=== PATIENT | male | born 1970 | race Caucasian/White ===

== ENCOUNTER 2019-12-22 01:14 | Inpatient (IN) | payer MEDICAID ==
[~2019-12-22] VITALS: Ht 185.4 cm; Wt 87.5 kg
[~2019-12-22 01:14] MED LIST: GABA-1181 PO; HYDR-4031 PO; MIRT45TA PO
[2019-12-22] MEDS ORDERED: LORazepam 1 MG TABLET PO PRN (02:30)
[2019-12-22] MEDS ORDERED: HALOPERIDOL 5 MG TABLET PO PRN (02:30)
[2019-12-22] MEDS ORDERED: ZOLPIDEM TARTRATE 10 MG TABLET PO PRN (02:30)
[2019-12-22 04:29] VITALS: BP 138/94
[2019-12-22 10:01] VITALS: BP 120/80
[2019-12-22] MEDS ORDERED: MAGNESIUM HYDROXIDE SUSPENSION 30 ML UDCUP PO PRN (11:30)
[2019-12-22] MEDS ORDERED: ACETAMINOPHEN 325 MG TABLET PO PRN (11:30)
[2019-12-22] MEDS ORDERED: ALBUTEROL SULFATE HFA 90 MCG/PUFF 8 GM INHALER IH PRN (11:30)
[2019-12-22] MEDS ORDERED: LOPERAMIDE HCL 2 MG CAPSULE PO PRN (11:30)
[2019-12-22] MEDS ORDERED: ONDANSETRON HCL 4 MG TABLET PO PRN (11:30)
[2019-12-22] MEDS ORDERED: CloNIDine HCL 0.1 MG TABLET PO PRN (11:30)
[2019-12-22] MEDS ORDERED: MAG HYDROX/AL HYDROX/SIMETH ES 30 ML SUSPENSION UDCUP PO PRN (11:30)
[2019-12-22] MEDS ORDERED: PETROLATUM,WHITE 28 GM JELLY TP PRN (11:30)
[2019-12-22] MEDS ORDERED: GuaiFENesin/D-METHORPHAN [SUGAR-FREE] 200-20MG/10 ML SYRUP UDCUP PO PRN (11:30)
[2019-12-22] MEDS ORDERED: DOCUSATE SODIUM 100 MG CAPSULE PO PRN (11:30)
[2019-12-22] MEDS ORDERED: NICOTINE 14 MG/24 HOUR PATCH TD PRN (11:30)
[2019-12-22] MEDS ORDERED: MIRT30 PO (13:47)
[2019-12-22] MEDS ORDERED: HYDR50CA9 PO (13:47)
[2019-12-22] MEDS: BusPIRone HCL 15 MG TABLET PO SCH (16:18)
[2019-12-22 16:23] VITALS: BP 129/87
[2019-12-22] MEDS: IBUPROFEN 400 MG TABLET PO PRN (16:23)
[2019-12-22] MEDS: RisperiDONE 1 MG TABLET PO SCH (20:25)
[2019-12-22] MEDS: MIRTAZAPINE 30 MG TABLET PO SCH (20:25)
[2019-12-23 01:41] VITALS: BP 132/79
[2019-12-23 08:28] LABS: BASOPHILS % (AUTO) 0.6 % (0.0-2.0); EOSINOPHILS % (AUTO) 2.2 % (1.0-6.0); HEMATOCRIT 48.6 % (41-53); HEMOGLOBIN 16.1 g/dL (13.5-17.5); LYMPHOCYTES # (AUTO) 1.8 K/uL (1.0-4.8); MEAN CORPUSCULAR HEMOGLOBIN 30.1 pg (26.0-34.0); MEAN CORPUSCULAR HGB CONC 33.1 G/dL (31.0-37.0); MEAN CORPUSCULAR VOLUME 91 fL (80-100); MONOCYTES # (AUTO) 0.4 K/uL (0.1-1.0); MONOCYTES % (AUTO) 8.1 % (2.0-9.0); NEUTROPHILS # (AUTO) 2.7 K/uL (1.8-7.7); NEUTROPHILS % (AUTO) 54.1 % (40.0-70.0); PLATELET COUNT (AUTO) 226 K/uL (150-450); RED BLOOD CELL COUNT(AUTO) 5.34 MIL/uL (4.50-5.90); RED CELL DISTRIBUTION WIDTH 15.8 % (11.5-14.5)
[2019-12-23 08:55] LABS: ALANINE AMINOTRANSFERASE 40 U/L (12-78); ALBUMIN 3.5 g/dL (3.4-5.0); ALKALINE PHOSPHATASE 80 U/L (46-116); ANION GAP 10 mmol/L (8-16); ASPARTATE AMINOTRANSFERASE 28 U/L (15-37); BILIRUBIN,TOTAL 0.9 mg/dL (0.1-1.0); CALCIUM, TOTAL 9.2 mg/dL (8.8-10.5); CARBON DIOXIDE 27 mmol/L (22-29); CHLORIDE 104 mmol/L (98-107); CHOL/HDL RATIO 2.7 (4.2-7.3); CHOLESTEROL 184 mg/dL (131-200); CREATININE 0.88 mg/dL (0.60-1.30); FREE T4 (FREE THYROXINE) 0.95 ng/dL (0.76-1.46); GLOMERULAR FILTR. RATE CALC > 60 mL/min (>60); GLUCOSE,RANDOM 93 mg/dL (70-110); HDL CHOLESTEROL 68 mg/dL (40-60); LDL CHOL (CALC.) 96 mg/dL (0-130); POTASSIUM 3.9 mmol/L (3.5-5.1); SODIUM SERUM 141 mmol/L (136-145); THYROID STIMULATING HORMONE 1.14 uIU/mL (0.36-3.74); TOTAL PROTEIN, SERUM 7.1 g/dL (6.4-8.2); TRIGLYCERIDES 99 mg/dL (15-150); UREA NITROGEN, BLOOD 17 mg/dL (7-18)
[2019-12-23] MEDS: BusPIRone HCL 15 MG TABLET PO SCH ×2 (09:01→16:25)
[2019-12-23 09:43] VITALS: BP 131/68
[2019-12-23 16:00] VITALS: BP 133/75
[2019-12-23] MEDS: MIRTAZAPINE 30 MG TABLET PO SCH (20:02)
[2019-12-23] MEDS: RisperiDONE 1 MG TABLET PO SCH (20:02)
[2019-12-23] MEDS: IBUPROFEN 400 MG TABLET PO PRN (20:03)
[2019-12-24 05:30] VITALS: BP 133/72
[2019-12-24] MEDS: BusPIRone HCL 15 MG TABLET PO SCH ×2 (08:41→16:40)
[2019-12-24] MEDS: IBUPROFEN 400 MG TABLET PO PRN ×2 (10:02→16:40)
[2019-12-24 10:53] VITALS: BP 104/60
[2019-12-24 19:18] VITALS: BP 126/89
[2019-12-24] MEDS: MIRTAZAPINE 30 MG TABLET PO SCH (20:16)
[2019-12-24] MEDS: RisperiDONE 1 MG TABLET PO SCH (20:16)
[2019-12-25 05:18] VITALS: BP 122/80
[2019-12-25] MEDS: BusPIRone HCL 15 MG TABLET PO SCH ×2 (09:26→17:50)
[2019-12-25 17:47] VITALS: BP 133/79
[2019-12-25] MEDS: IBUPROFEN 400 MG TABLET PO PRN (20:53)
[2019-12-25] MEDS: MIRTAZAPINE 30 MG TABLET PO SCH (20:53)
[2019-12-25] MEDS: RisperiDONE 1 MG TABLET PO SCH (20:53)
[2019-12-26 00:37] VITALS: BP 132/80
[2019-12-26] MEDS: BusPIRone HCL 15 MG TABLET PO SCH ×2 (09:25→16:57)
[2019-12-26 10:16] VITALS: BP 116/63
[2019-12-26 13:12] VITALS: BP 120/65
[2019-12-26] MEDS: IBUPROFEN 400 MG TABLET PO PRN (13:12)
[2019-12-26 16:16] VITALS: BP 110/76
[2019-12-26] MEDS: MIRTAZAPINE 30 MG TABLET PO SCH (20:22)
[2019-12-26] MEDS: RisperiDONE 1 MG TABLET PO SCH (20:23)
[2019-12-27 00:24] VITALS: BP 127/89
[2019-12-27 08:18] VITALS: BP 121/75
[2019-12-27] MEDS: BusPIRone HCL 15 MG TABLET PO SCH ×2 (08:45→16:21)
[2019-12-27] MEDS: IBUPROFEN 400 MG TABLET PO PRN ×2 (10:53→20:58)
[2019-12-27 17:09] VITALS: BP 122/82
[2019-12-27] MEDS: RisperiDONE 1 MG TABLET PO SCH (20:10)
[2019-12-27] MEDS: MIRTAZAPINE 30 MG TABLET PO SCH (20:10)
[2019-12-27 20:58] VITALS: BP 126/82
[2019-12-28 00:56] VITALS: BP 131/87
[2019-12-28 08:16] VITALS: BP 114/60
[2019-12-28] MEDS: BusPIRone HCL 15 MG TABLET PO SCH (08:41)
[2019-12-28] MEDS ORDERED: BUSP15 PO (10:41)
[2019-12-28] MEDS ORDERED: RISP1TAB89 PO (10:41)
[2019-12-28] MEDS ORDERED: MIRT30 PO (10:41)
== END 2019-12-28 13:08 | disposition home or self-care (01) | DRG 751 ==
LOC: B2S 03:23
PROVIDERS: ADMIT Psychiatry & Neurology Child & Adolescent Psychiatry; ATTEND Psychiatry & Neurology Child & Adolescent Psychiatry
DX: F33.3 Major depressive disorder, recurrent, severe with psychotic symptoms (principal); R45.851 Suicidal ideations; F10.10 Alcohol abuse, uncomplicated; Z59.0 Homelessness; F15.10 Other stimulant abuse, uncomplicated
CPT/HCPCS: 84439; 84443; G0480